=== PATIENT | male | born 1935 ===

== ENCOUNTER 2017-09-15 13:16 | Emergency (ER) | payer MEDICARE, MEDICAID ==
[2017-09-15 13:40] VITALS: BP 123/61; PULSE 68; RESP 20; TEMP 97.8; O2SAT 99
[2017-09-15] MEDS ORDERED: Sodium Chloride 0.9% 500 ML IV ONE (15:39)
[2017-09-15] MEDS ORDERED: Sodium Chloride 0.9% 1,000 ML ONE (15:52)
[2017-09-15 15:57] LABS: BASO % 0.7 % (0.0-2.0); EOS # 0.1 K/uL (0.0-0.7); LYMPH % 32.6 % (20.0-40.0); MEAN CELL VOLUME 96.1 fL (80.0-94.0); MEAN CORPUSCULAR HEMOGLOBIN 33.1 pg (27.0-31.0); MEAN CORPUSCULAR HGB CONC 34.5 g/dL (33.0-37.0); MEAN PLATELET VOLUME 10.4 fL (7.2-11.7); MONO # 0.5 K/uL (0.0-0.8); MONO % 7.5 % (0.0-10.0); NEUT # 3.4 K/uL (1.8-7.0); NEUT % 57.2 % (50.0-75.0); NRBC % 0.1 % (0.0-2.0); RBC 3.91 Mil/uL (4.40-5.90)
[2017-09-15 15:59] LABS: URINE BILIRUBIN NEGATIVE (NEGATIVE); URINE BLOOD NEGATIVE (NEGATIVE); URINE CLARITY Clear (Clear); URINE COLOR Yellow (YELLOW); URINE GLUCOSE (UA) NORMAL (Normal); URINE LEUKOCYTE ESTERASE NEG Leu/uL (Negative); URINE PROTEIN NEGATIVE (NEGATIVE); URINE UROBILINOGEN NORMAL mg/dL (0.2-1.0)
[2017-09-15 16:12] LABS: ALB/GLOB RATIO 1.2 (1.0-2.1); ALBUMIN 4.4 g/dL (3.5-5.0); ALT/SGPT 38 U/L (21-72); AST/SGOT 54 U/L (17-59); BLOOD UREA NITROGEN 13 mg/dL (9-20); CALCIUM 9.1 mg/dl (8.6-10.4); GFR AFRICAN-AMERICAN > 60; GFR NON-AFRICAN AMERICAN > 60; LIPASE 78 U/L (23-300)
--- NOTE | 2017-09-15 16:18 | C.PDOC ---
History Of Present Illness 82 y/o male presents to the ER complaining of intermittent colicky right-sided abdominal pain which has been present for the past 1 month. Patient states that he was referred for an outpatient US by his GI but he did not have an US as of now. Patient denies having nausea, vomiting,diarrhea, and constipation. Of note , patient has localized, non-metastatic prostate cancer and his urologist is . Time Seen by Provider: 09/15/17 15:31 Chief Complaint (Nursing): Abdominal Pain History Per: Patient History/Exam Limitations: no limitations Onset/Duration Of Symptoms: Days Current Symptoms Are (Timing): Still Present Severity: Moderate Past Medical History Reviewed: Historical Data, Nursing Documentation, Vital Signs Vital Signs: Last Vital Signs Temp 97.8 F 09/15/17 13:38 Pulse 68 09/15/17 13:38 Resp 20 09/15/17 13:38 BP 123/61 09/15/17 13:38 Pulse Ox 99 09/15/17 18:38 - Medical History PMH: Gastritis, HTN, Hypercholesterolemia, Hypothyroidism Surgical History: No Surg Hx Family History: States: No Known Family Hx - Social History Hx Alcohol Use: No Hx Substance Use: No - Immunization History Hx Tetanus Toxoid Vaccination: No Hx Influenza Vaccination: Yes (04/2015) Hx Pneumococcal Vaccination: No Review Of Systems Except As Marked, All Systems Reviewed And Found Negative. Constitutional: Negative for: Fever, Chills Gastrointestinal: Positive for: Abdominal Pain. Negative for: Nausea, Vomiting , Diarrhea Physical Exam - Physical Exam Appears: Non-toxic, No Acute Distress Skin: Normal Color, Warm, Dry Head: Atraumatic, Normacephalic Eye(s): bilateral: Normal Inspection Nose: Normal Oral Mucosa: Moist Neck: Supple Chest: Symmetrical Cardiovascular: Rhythm Regular Respiratory: Normal Breath Sounds, No Rales, No Rhonchi, No Wheezing Gastrointestinal/Abdominal: Normal Exam, Soft, No Tenderness, Other (dull to percussion in epigastrium region, (-) Emmanuel's, (-) McBurney's) Neurological/Psych: Oriented x3, Normal Speech ED Course And Treatment - Laboratory Results Result Diagrams: 09/15/17 15:49 09/15/17 15:49 Lab Interpretation: Normal (UA neg.) ECG: Interpreted By Me, Viewed By Me ECG Rhythm: Sinus Rhythm Rate From EC (BPM) O2 Sat by Pulse Oximetry: 99 (RA) Pulse Ox Interpretation: Normal - Radiology CXR: Interpreted by Me CXR Interpretation: Yes: No Acute Disease - Other Rad abd x 2 X-Ray: Interpreted by Me (+FOS, no obst/FA) Reevaluation Time: 16:44 Reassessment Condition: Improved Medical Decision Making Medical Decision Making: chronic constipation LOW susp of GB/AP empiric tx with laxative and re-eval pending outpatient is followed by GI- Colonoscopy pending. Disposition Doctor Will See Patient In The: Office Counseled Patient/Family Regarding: Studies Performed, Diagnosis - Disposition Referrals: Kandy Pastrana FNP [Advanced Practice Nurse] - Disposition: HOME/ ROUTINE Disposition Time: 16:45 Condition: GOOD Additional Instructions: bushra un purgante ahora: recomiendo que bushra yuliana botella de Citrato de Magnesio ahora- y re-evalua shaw molestia del abdomen despues de evacuarse 2-3 veces Cambios de dieta kinza las comidas que provocan el estrenemiento bushra mas agua 7 verduras y frutas crudas diarios Colonoscopia con shaw Gastroenterologo Todos shaw examenes normales hoy Instructions: Constipation in Adults Forms: [facility] (Luxembourgish) Print Language: SETSWANA - Clinical Impression Clinical Impression: Abdominal colic - Scribe Statement The provider has reviewed the documentation as recorded by the Scribe Sincere Kauffman Provider Attestation: All medical record entries made by the Scribe were at my direction and personally dictated by me. I have reviewed the chart and agree that the record accurately reflects my personal performance of the history, physical exam, medical decision making, and the department course for this patient. I have also personally directed, reviewed, and agree with the discharge instructions and disposition.
--- NOTE | 2017-09-15 17:54 | RAD ---
PROCEDURE: Radiographs of the chest and abdomen (obstructive series) HISTORY: Abdominal pain. Duration of symptoms: 1 month COMPARISON: No prior. TECHNIQUE: AP radiograph of the chest, with upright and supine radiographs of the abdomen. FINDINGS: CHEST: Lungs: Clear. Cardiovascular: Normal size heart. No pulmonary vascular congestion. Pleura: No pleural fluid. No pneumothorax. Other findings: None. ABDOMEN AND PELVIS: Bowel: Unremarkable bowel gas pattern. No evidence of mechanical obstruction. Free air: None. Bones: Scoliosis, secondary degenerative change at multiple levels. Other findings: None. IMPRESSION: No acute findings related to/accounting for the clinical presentation. Concordant results with the preliminary interpretation rendered by the emergency department physician procedure.
--- NOTE | 2017-09-17 12:33 | CARD ---
APPROVED REPORT EKG Measurement Heart [id number] <Conclusion> Normal sinus rhythm Minimal voltage criteria for LVH, may be normal variant Borderline ECG
== END 2017-09-15 16:54 | disposition home or self-care (01) ==
LOC: C.ER 13:16
DX: R10.84 Generalized abdominal pain (principal); I10 Essential (primary) hypertension; E78.00 Pure hypercholesterolemia, unspecified
CPT/HCPCS: 74022; 80053; 81001; 83690; 84484; 85025; 93005; 96374; 99283; J1885; J7040

== ENCOUNTER 2018-09-29 09:48 | Outpatient (CLI) | payer MEDICARE, MEDICAID | END 2018-09-29 09:49 | disposition home or self-care (01) | LOC: C.LAB 09:48 | DX: I12.9 Hypertensive chronic kidney disease with stage 1 through stage 4 chronic kidney disease, or unspecified chronic kidney disease (principal) ==

== ENCOUNTER 2018-10-11 13:58 | Outpatient (CLI) | payer MEDICARE, MEDICAID | END 2018-10-11 13:59 | disposition home or self-care (01) | LOC: C.USIC 13:58 | DX: N28.1 Cyst of kidney, acquired (principal) ==